=== PATIENT | male | born 1990 | race African-American/Black ===

== ENCOUNTER 2019-11-23 08:16 | Observation (INO) ==
[2019-11-23] MEDS ORDERED: ONDANSETRON 4 MG/2 ML VIAL IV STA (08:57)
[2019-11-23] MEDS ORDERED: SODIUM CHLORIDE 0.9% 1,000 ML IV STA ×2 (08:57→11:44)
[2019-11-23] MEDS ORDERED: ONDANSETRON 4 MG/2 ML VIAL ONE (08:57)
[2019-11-23 09:16] LABS: Basophils % 0.1 % (0.0-0.8); Hematocrit 47.1 VOL% (42.0-52.0); Hemoglobin 15.5 GM/DL (14.0-18.0); Immature Granulocytes % 0.4 %; Immature Granulocytes Absolute 0.06 #; Lymphocytes % 6.8 % (21.2-54.2); Mean Corpuscular HGB Conc 32.9 GM/DL (32-36); Mean Corpuscular Volume 90.2 FL (87-102); Mean Platelet Volume 10.2 FL (9.6-12.0); Monocytes % 4.2 % (1.7-12.7); Neutrophils % 88.5 % (38.7-73.9); Platelet Count 319 T/CUMM (130-400); Red Blood Count 5.22 MC/CUMM (3.8-5.5); Red Cell Distribution Width 12.3 % (9.3-17.3)
[2019-11-23 09:18] LABS: Apearance,Urine CLEAR (Clear); Bilirubin,Urine Negative (Negative); Blood, Urine Negative (Negative); Glucose,Urine (UA) >=500 mg/dL (Negative); Ketones,Urine 80 mg/dL (Negative); Mucus,Urine Occasional /LPF (Occasional); Nitrite,Urine Negative (Negative); Protein,Urine Negative; RBC,Urine 4 /HPF (0-4); Urine Color Straw (Yellow); Urine Specific Gravity 1.022 (1.001-1.035); Urine Urobilinogen < 2.0 EU/DL (0.2-1.0); WBC,Urine <1 /HPF (0-6)
[2019-11-23 09:25] LABS: Barbiturates Screen,Urine Negative (Negative); Benzodiazepines Screen,Urine Negative (Negative); Cannabinoid Screen,Urine Negative (Negative); Opiate Screen,Urine Positive (Negative); Phencyclidine Screen,Urine Negative (Negative)
[2019-11-23 09:33] LABS: Alanine Aminotransferase 21 U/L (16-61); Albumin 4.1 G/DL (3.4-5.0); Alkaline Phosphatase 118 U/L (45-117); Aspartate Amino Transferase 13 U/L (0-37); Blood Urea Nitrogen 18 MG/DL (7-18); Calcium 9.7 MG/DL (8.5-10.1); Estimated Glom Filtration Rate 104 ML/MIN; Glucose 335 MG/DL (74-106); Osmolality,Calculated 287.8 MOS/KG (273-304); Total Protein 8.1 G/DL (6.4-8.3)
[2019-11-23] MEDS ORDERED: INSULIN REGULAR 100 UNIT/ML IV STA (10:01)
[2019-11-23] MEDS ORDERED: KETOROLAC 30 MG/1 ML VIAL ONE (11:48)
[2019-11-23] MEDS ORDERED: KETOROLAC 30 MG/1 ML VIAL IV STA (12:05)
[2019-11-23] MEDS ORDERED: INSULIN REGULAR 100 UNIT/ML SUBCUT STA (12:10)
[2019-11-23] MEDS ORDERED: DEXTROSE 50% 25 GM/50 ML VIAL IV PRN (12:29)
[2019-11-23] MEDS ORDERED: INSULIN GLARGINE 100 UNIT/ML SUBCUT STA (12:29)
[2019-11-23] MEDS ORDERED: GLUCAGON 1 MG VIAL IM PRN (12:29)
[2019-11-23] MEDS ORDERED: LACTATED RINGERS 1,000 ML IV SCH (12:30)
[2019-11-23] MEDS ORDERED: PANTOPRAZOLE 40 MG TABLET PO SCH (12:31)
[2019-11-23] MEDS ORDERED: INSULIN GLARGINE 100 UNIT/ML SUBCUT SCH (13:30)
[2019-11-23] MEDS ORDERED: INSULIN REGULAR 100 UNIT/ML SUBCUT SCH (14:00)
[2019-11-23] MEDS ORDERED: ALUMINUM/MAGNES/SIMETH MAX STR 30 ML UDCUP PO PRN (14:30)
[2019-11-23] MEDS ORDERED: MORPHINE 4 MG/1 ML VIAL IV PRN (14:50)
[2019-11-23] MEDS ORDERED: ONDANSETRON 4 MG/2 ML VIAL IV PRN (14:53)
[2019-11-23 15:05] LABS: Calcium 9.4 MG/DL (8.5-10.1); Osmolality,Calculated 287.7 MOS/KG (273-304)
[2019-11-23 16:03] VITALS: BP 112/68
[2019-11-24] MEDS ORDERED: NICOTINE 14 MG/24 HR PATCH TRANSDERM SCH (09:00)
== END 2019-11-23 16:57 | disposition left against medical advice (07) ==
LOC: N.ED 08:16 → N.EDINP 12:01 → SUATTDRO 12:01 → INTOOBSV 12:01 → N.3E 14:09
PROVIDERS: ADMIT Internal Medicine; ATTEND Internal Medicine